=== PATIENT | female | born 1990 | race African-American/Black ===

== ENCOUNTER 2017-03-15 09:57 | Inpatient (IN) | payer OTHER ==
[~2017-03-15] VITALS: Ht 160 cm; Wt 94.8 kg
[2017-03-15] VITALS (11 sets, daily range): BP systolic 100–121; BP diastolic 45–75; PULSE 69–99; RESP 16–20; TEMP 97.7–98.3; O2SAT 96–100
[2017-03-15] MEDS ORDERED: LACTATED RINGER'S 1000 ML INJ 1,000 ML IV ONE (10:21)
--- NOTE | 2017-03-15 10:29 | HHI.HP ---
HPI Chief Complaint Repeat Date Seen: Mar 15, 2017 Travel History International Travel<30 Days: No Contact w/Intl Traveler<30Days: No History of Present Illness HPI Patient is a 26 year old at 39-3/7 weeks gestation who presents today for repeat . She denies any vaginal bleeding or discharge. No contractions or gush or leaking of fluid. Positive movement. No complications with . History Past Medical History Narrative Medical Sickle cell trait Medical History: Denies Significant Hx Obstetric History Obstetric History x 3 Past Surgical History Narrative Surgical x 3 Family History Family History: Negative Social History Alcohol Use: No Tobacco Use: No Substance Abuse: No Allergies-Medications (Allergen,Severity, Reaction): Coded Allergies: latex (Verified Allergy, Unknown, 03/15/17) Review of Systems Except as stated in HPI: all other systems reviewed are Neg General / Constitutional: No: Fever, Chills Eyes: No: Blurred Vision, Visual changes HENT: No: Headaches Cardiovascular: No: Chest Pain or Discomfort, Palpitations Respiratory: No: Cough, Short of Breath Gastrointestinal: No: Nausea, Vomiting, Abdominal Pain Genitourinary: No: Dysuria, Hematuria, Pelvic Pain, Discharge, Vaginal Bleeding Musculoskeletal: No: Edema Neurologic: No: Headache Psychiatric: No: Substance Abuse Physical Exam Narrative GENERAL: Well-nourished, well-developed patient. SKIN: Warm and dry. HEAD: Normocephalic and atraumatic. EYES: No scleral icterus. No injection or drainage. ENT: No nasal drainage noted. Mucous membranes pink. Airway patent. NECK: Supple, trachea midline. No JVD. CARDIOVASCULAR: Regular rate and rhythm without murmurs, gallops, or rubs. RESPIRATORY: Breath sounds equal bilaterally. No accessory muscle use. ABDOMEN/GI: Abdomen soft, non-tender, bowel sounds present, no rebound, no guarding Gravid to 39 weeks size GENITOURINARY: External Genitalia: intact and normal in appearance Presentation: vertex Membranes: intact Uterine Contractions: none FHT's: Category: I Baseline: 140 Reactive: + Variability: moderate Decels: none EXTREMITIES: No cyanosis or edema. BACK: Nontender without obvious deformity. No CVA tenderness. NEUROLOGICAL: Awake and alert. Motor and sensory grossly within normal limits. Normal speech. Caprini VTE Risk Assessment Caprini VTE Risk Assessment: No/Low Risk (score <= 1) Caprini Risk Assessment Model Point Value = 1 Point Value = 2 Point Value = 3 Point Value = 5 Age 41-60 Minor surgery BMI > 25 kg/m2 Swollen legs Varicose veins or History of unexplained or recurrent spontaneous Oral contraceptives or hormone replacement Sepsis (< 1 month) Serious lung disease, including pneumonia (< 1 month) Abnormal pulmonary function Acute myocardial infarction Congestive heart failure (< 1 month) History of inflammatory bowel disease Medical patient at bed rest Age 61-74 Arthroscopic surgery Major open surgery (> 45 min) Laparoscopic surgery (> 45 min) Malignancy Confined to bed (> 72 hours) Immobilizing plaster cast Central venous access Age >= 75 History of VTE Family history of VTE Factor V Leiden Prothrombin [id number] Lupus anticoagulant Anticardiolipin antibodies Elevated serum homocysteine Heparin-induced thrombocytopenia Other congenital or acquired thrombophilia Stroke (< 1 month) Elective arthroplasty Hip, pelvis, or leg fracture Acute spinal cord injury (< 1 month) Prophylaxis Regimen Total Risk Factor Score Risk Level Prophylaxis Regimen 0-1 Low Early ambulation 2 Moderate Order ONE of the following: *Sequential Compression Device (SCD) *Heparin 5000 units SQ BID 3-4 Higher Order ONE of the following medications: *Heparin 5000 units SQ TID *Enoxaparin/Lovenox 40 mg SQ daily (WT < 150 kg, CrCl > 30 mL/min) *Enoxaparin/Lovenox 30 mg SQ daily (WT < 150 kg, CrCl > 10-29 mL/min) *Enoxaparin/Lovenox 30 mg SQ BID (WT < 150 kg, CrCl > 30 mL/min) AND/OR *Sequential Compression Device (SCD) 5 or more Highest Order ONE of the following medications: *Heparin 5000 units SQ TID (Preferred with Epidurals) *Enoxaparin/Lovenox 40 mg SQ daily (WT < 150 kg, CrCl > 30 mL/min) *Enoxaparin/Lovenox 30 mg SQ daily (WT < 150 kg, CrCl > 10-29 mL/min) *Enoxaparin/Lovenox 30 mg SQ BID (WT < 150 kg, CrCl > 30 mL/min) AND *Sequential Compression Device (SCD) Data Data Vital Signs Reviewed: Yes Orders Orders Admit To Inpatient (03/15/17 ) Code Status (03/15/17 10:21) Vital Signs (Adult) .ON ADMISSION (03/15/17 10:21) Activity Oob Ad Monica (03/15/17 10:21) Heart (03/15/17 10:21) Urinary Catheter Management NETTA.Q8H (03/15/17 10:21) ^ Preps (03/15/17 10:21) Scd / Fito / Foot Pump NETTA.QSHIFT (03/15/17 10:21) ^ Ultrasound For Locatio (03/15/17 10:21) Diet Npo (03/15/17 Lunch) Lactated Ringer's 1000 Ml Inj (Lr 1000 M (03/15/17 10:21) Lactated Ringer's 1000 Ml Inj (Lr 1000 M (03/15/17 10:51) Cefazolin 2 Gm Premix (Ancef 2 Gm Premix (03/15/17 11:30) Citric Acid-Sodium Citrate Liq (Bicitra (03/15/17 12:00) Type And Screen (03/15/17 10:21) Complete Blood Count With Diff (03/15/17 10:21) Urinalysis - C+S If Indicated (03/15/17 10:21) Inpatient Certification (03/15/17 ) Specimen To Be Collected PRN (03/15/17 10:21) Group B Strep: Positive Assessment/Plan Problem List: (1) 39 weeks gestation of ICD Codes: Z3A.39 - 39 weeks gestation of Assessment and Plan 26 year old at 39-3/7 weeks gestation. 1. IUP- Category I tracing, reassuring. 2. Repeat without tubal ligation. 3. GBS positive. dw Fernanda Enriquez MD, R3 Mar 15, 2017 10:29
[2017-03-15 10:43] LABS: AUTOMATED NEUTROPHIL # 8.9 TH/MM3 (1.8-7.7); BASOPHIL % 0.3 % (0.0-2.0); EOSINOPHIL % 0.3 % (0.0-4.0); HEMATOCRIT 30.5 % (35.0-46.0); LYMPH % 15.9 % (9.0-44.0); LYMPHOCYTE # 1.8 TH/MM3 (1.0-4.8); MEAN CELL VOLUME 66.4 FL (80.0-100.0); MEAN CORPUSCULAR HEMOGLOBIN 21.5 PG (27.0-34.0); MEAN CORPUSCULAR HGB CONC 32.4 % (32.0-36.0); MONO % 5.3 % (0.0-8.0); NEUT % 78.2 % (16.0-70.0); PLATELET COUNT 152 TH/MM3 (150-450); RED BLOOD COUNT 4.59 MIL/MM3 (4.00-5.30); RED CELL DISTRIBUTION WIDTH 21.8 % (11.6-17.2); WHITE BLOOD COUNT 11.3 TH/MM3 (4.0-11.0)
[2017-03-15 10:44] LABS: HEMO FLAGS AUTO DIFF
[2017-03-15 10:48] LABS: BACTERIA, URINE MOD /hpf; BLOOD, URINE NEG (NEG); COMMENT (UR) CULTURE INDICATED; CULTURE IF INDICATED CULTURE INDICATED; GLUCOSE,URINE NEG (NEG); HYALINE CAST, URINE 2 /lpf (RARE); KETONE, URINE 10 mg/dL (NEG); MUCUS URINE FEW /lpf (OCC); NITRITE,URINE NEG (NEG); SQUAMOUS EPITHELIAL CELL URINE 31 /hpf (0-5); URINE COLOR YELLOW (YELLW/STRAW)
[2017-03-15] MEDS ORDERED: ACETAMINOPHEN 1000 MG/100 ML 100 ML IV ONE ×2 (11:26→13:30)
[2017-03-15] MEDS ORDERED: OXYTOCIN 10 UNIT/ML AMP ONE (11:26)
[2017-03-15] MEDS: LACTATED RINGER'S 1000 ML INJ 1,000 ML IV SCH (11:27)
[2017-03-15] MEDS ORDERED: ceFAZolin 2 GM PREMIX 50 ML IV SCH (11:30)
[2017-03-15 11:41] LABS: OVALOCYTES 1+ (NORMAL); SCAN/DIFF AUTO DIFF CONFIRMED; TEARDROP RBCS 1+ (NORMAL)
[2017-03-15 11:43] LABS: KERATOCYTES OCC (NORMAL)
[2017-03-15] MEDS ORDERED: CITRIC ACID-SODIUM CITRATE LIQ 30 ML UDC PO SCH (12:00)
[2017-03-15] MEDS ORDERED: MORPHINE SULFATE PF 5 MG/10 ML VIAL ONE (13:22)
[2017-03-15] MEDS ORDERED: ONDANSETRON HCL 4 MG/2 ML VIAL ONE (13:22)
[2017-03-15] MEDS ORDERED: OXYTOCIN 30 UNITS-500ML PREMIX 500 ML IV ONE ×2 (13:30)
[2017-03-15] MEDS ORDERED: SODIUM CHLORIDE 0.9% FLUSH 10 ML FLUSH IV FLUSH PRN (13:30)
[2017-03-15] MEDS ORDERED: oxyCODONE/ACETAMINOPHEN 5 MG/325 MG TAB PO PRN (13:30)
[2017-03-15] MEDS ORDERED: ONDANSETRON HCL 4 MG/2 ML VIAL IV PUSH PRN (13:30)
[2017-03-15] MEDS ORDERED: SIMETHICONE 80 MG CHEWABLE TAB PO PRN (13:30)
[2017-03-15] MEDS ORDERED: DOCUSATE SODIUM 50 MG/SENNA 8.6 MG TAB PO PRN (13:30)
[2017-03-15] MEDS ORDERED: *Lactated Ringer's INJ 1,000 ML IV ONE (13:46)
[2017-03-15] MEDS ORDERED: OXYTOCIN 30 UNITS-500ML PREMIX 500 ML ONE (14:03)
[2017-03-15] MEDS ORDERED: EPIDURAL-DO NOT ADMINISTER ANTICOAGULANTS PRN (15:00)
[2017-03-15] MEDS ORDERED: EPIDURAL-NALOXONE HCL 0.4 MG/ML AMP IV PUSH PRN (15:00)
[2017-03-15] MEDS ORDERED: EPIDURAL-DIPHENHYDRAMINE HCL 50 MG CAP PO PRN (15:00)
[2017-03-15] MEDS ORDERED: MORPHINE SULFATE PF 5 MG/10 ML VIAL IT ONE (15:00)
[2017-03-15] MEDS ORDERED: EPIDURAL-DIPHENHYDRAMINE HCL 50 MG/ML VIAL IV PUSH PRN (15:00)
[2017-03-15] MEDS ORDERED: EPIDURAL-NO SYSTEMIC NARCOTICS PRN (15:00)
[2017-03-15] MEDS ORDERED: LACTATED RINGER'S 1000 ML INJ 1,000 ML IV SCH (18:27)
[2017-03-15] MEDS ORDERED: SODIUM CHLORIDE 0.9% FLUSH 10 ML FLUSH IV FLUSH SCH (21:00)
[2017-03-15] MEDS ORDERED: OXYTOCIN 30 UNITS-500ML PREMIX 500 ML IV PRN (23:30)
[2017-03-16] VITALS (8 sets, daily range): BP systolic 98–120; BP diastolic 54–71; PULSE 72–93; RESP 14–16; TEMP 98.2–98.8
[2017-03-16] MEDS: oxyCODONE/ACETAMINOPHEN 5 MG/325 MG TAB PO PRN ×3 (02:57→23:02)
[2017-03-16] MEDS: IBUPROFEN 600 MG TAB PO PRN ×3 (02:57→23:02)
[2017-03-16 08:15] LABS: AUTOMATED NEUTROPHIL # 10.9 TH/MM3 (1.8-7.7); BASOPHIL % 0.3 % (0.0-2.0); EOSINOPHIL % 0.2 % (0.0-4.0); HEMATOCRIT 23.6 % (35.0-46.0); LYMPH % 11.7 % (9.0-44.0); LYMPHOCYTE # 1.6 TH/MM3 (1.0-4.8); MEAN CORPUSCULAR HEMOGLOBIN 21.7 PG (27.0-34.0); MEAN CORPUSCULAR HGB CONC 32.3 % (32.0-36.0); MONO % 6.2 % (0.0-8.0); NEUT % 81.6 % (16.0-70.0); PLATELET COUNT 125 TH/MM3 (150-450); RED BLOOD COUNT 3.51 MIL/MM3 (4.00-5.30); RED CELL DISTRIBUTION WIDTH 22.4 % (11.6-17.2); WHITE BLOOD COUNT 13.3 TH/MM3 (4.0-11.0)
[2017-03-16 08:29] LABS: HEMO FLAGS AUTO DIFF
--- NOTE | 2017-03-16 09:30 | HHI.OB ---
Subjective Post Operative Day: 1 Objective Vitals/I&O Vital Signs Date Time Temp Pulse Resp B/P (MAP) Pulse Ox O2 Delivery O2 Flow Rate FiO2 03/16/17 04:00 98.2 78 16 120/71 (87) 03/16/17 00:16 98.3 76 14 98/54 (69) 03/15/17 20:20 98.3 81 16 101/65 (77) 03/15/17 14:55 88 16 103/45 (64) 03/15/17 14:30 82 106/50 (68) 03/15/17 14:30 18 96 03/15/17 14:15 104/57 (73) 03/15/17 14:11 80 18 100 03/15/17 14:11 97.7 03/15/17 13:59 105/59 (74) 03/15/17 13:59 87 18 98 03/15/17 13:45 111/58 (75) 03/15/17 13:39 86 20 104/62 (76) 98 03/15/17 13:26 97.8 98 18 102/52 (69) 98 03/15/17 10:30 99 100/74 (83) 03/15/17 10:25 98 03/15/17 10:25 69 121/75 (90) Result Diagram: 03/16/17 0716 Objective Remarks GENERAL: Well-nourished, well-developed patient. CARDIOVASCULAR: Regular rate and rhythm without murmurs, gallops, or rubs. RESPIRATORY: Breath sounds equal bilaterally. No accessory muscle use. ABDOMEN/GI: Abdomen soft, non-tender, bowel sounds present. Incision: dressing, Clean, dry and intact. Fundus: Firm, non-tender at umbilicus. GENITOURINARY: Light to moderate bleeding. EXTREMITIES: No cyanosis or edema, non-tender, without signs of DVT. Medications and IVs Current Medications Medications (Trade) Dose Ordered Sig/Shaun Route Start Time Stop Time Status Last Admin Lactated Ringer's 1,000 ml @ 150 mls/hr Q6H40M IV 03/15/17 10:51 03/15/17 11:27 Cefazolin Sodium/ Dextrose 50 ml @ 100 mls/hr SHAREPOINT SOLUTIONS ARCHITECT IV 03/15/17 11:30 03/19/17 11:29 (Bicitra Liq) 30 ml SH[employer] ARCHITECT PO 03/15/17 12:00 03/19/17 11:59 Lactated Ringer's 1,000 ml @ 100 mls/hr Q10H IV 03/15/17 18:27 03/16/17 14:26 Oxytocin 500 ml @ 100 mls/hr UNSCH X1 PRN IV 03/15/17 23:30 03/16/17 23:29 (NS Flush) 2 ml BID IV FLUSH 03/15/17 21:00 (NS Flush) 2 ml UNSCH PRN IV FLUSH 03/15/17 13:30 (Mylicon Chew) 80 mg QID PRN PO 03/15/17 13:30 (Motrin) 600 mg Q6H PRN PO 03/15/17 13:30 03/16/17 02:57 (Percocet 5-325 Mg) 1 tab Q4H PRN PO 03/15/17 13:30 03/16/17 02:57 (Percocet 5-325 Mg) 2 tab Q4H PRN PO 03/15/17 13:30 (Kira-Colace) 2 tab Q12H PRN PO 03/15/17 13:30 (M-M-R Ii Inj) 0.5 ml ONCE ONCE SQ 03/16/17 16:00 03/16/17 16:01 (Boostrix Inj) 0.5 ml ONCE ONCE IM 03/16/17 16:00 03/16/17 16:01 (Zofran Inj) 4 mg Q6H PRN IV PUSH 03/15/17 13:30 03/15/17 18:27 Miscellaneous Information NO SYSTEMIC NARCOTICS TO BE GIVEN FO... UNSCH PRN .XX 03/15/17 15:00 03/16/17 14:59 (Narcan Inj) 0.4 mg UNSCH PRN IV PUSH 03/15/17 15:00 03/16/17 14:59 (Benadryl Inj) 25 mg Q6H PRN IV PUSH 03/15/17 15:00 03/16/17 14:59 (Benadryl) 50 mg Q6H PRN PO 03/15/17 15:00 03/16/17 14:59 03/15/17 20:38 Miscellaneous Information ALL NURSING DEPARTMENTS UNSCH PRN .XX 03/15/17 15:00 03/16/17 14:59 Assessment/Plan Problem List: (1) 39 weeks gestation of ICD Codes: Z3A.39 - 39 weeks gestation of Status: Resolved (2) S/P repeat low transverse ICD Codes: Z98.891 - History of uterine scar from previous surgery (3) Anemia ICD Codes: D64.9 - Anemia, unspecified Status: Chronic Assessment and Plan POD #1 repeat c section pt doing well, denies sob or cp with ambulation, does have slight dizziness when moving, advised to move slowly pain well managed with Duramorph at this point hgb 7.6, will order Venofer and repeat cbc in am pt to shower today routine care Discharge Planning consider dc in 2 days Jimena Oreilly Mar 16, 2017 09:30
[2017-03-16 09:32] LABS: KERATOCYTES OCC (NORMAL); OVALOCYTES 1+ (NORMAL); PLATELET ESTIMATE SMEAR LOW (NORMAL); PLATELET MORPHOLOGY ENLARGED (NORMAL); SCAN/DIFF AUTO DIFF CONFIRMED; TEARDROP RBCS 1+ (NORMAL)
--- NOTE | 2017-03-16 09:39 | HHI.DCPOC ---
Discharge Care Plan Diagnosis: (1) S/P repeat low transverse (2) Anemia Your Health Problems Are: delivery Report Symptoms to Your Doctor -Temperature above 100.5 degrees -Redness, of incision or excessive or foul smelling drainage -Unusual pain or calf pain -Increased vaginal bleeding -Painful or difficulty urinating -Feelings of extreme sadness or anxiety after 2 weeks Goals to Promote Your Health * To prevent worsening of your condition and complications * To maintain your health at the optimal level Directions to Meet Your Goals Take your medications as prescribed Follow your dietary instruction Follow activity as directed Ensure plenty of rest for recovery Drink fluids for hydration Keep your appointments as scheduled Take your immunizations and boosters as scheduled If your symptoms worsen call your PCP, if no PCP go to Urgent Care Center or Emergency Room Smoking is Dangerous to Your Health. Avoid second hand smoke Call the 24-hour crisis hotline for domestic abuse at Jimena Oreilly Mar 16, 2017 09:39
[2017-03-16] MEDS: IRON SUCROSE INJ 200 MG in SODIUM CHLORIDE 0.9% INJ 100 ML IV SCH (11:28)
--- NOTE | 2017-03-16 12:53 | HHI.DS ---
Admission Date Mar 15, 2017 at 09:57 Admitting Diagnosis TERM PREVIOUS C SECTION REPEAT C SECTION Diagnosis: (1) S/P repeat low transverse ICD Codes: Z98.891 - History of uterine scar from previous surgery (2) 39 weeks gestation of ICD Codes: Z3A.39 - 39 weeks gestation of Status: Resolved Delivery Date: Mar 15, 2017 : Repeat Reason: DESIRES REPEAT Infant: Male Brief History Patient is a 26 year old at 39-3/7 weeks gestation who presents today for repeat . She denies any vaginal bleeding or discharge. No contractions or gush or leaking of fluid. Positive movement. No complications with . Hospital Course PREVIOUS C SECTION TERM WITH REPEAT C SECTION CHRONIC ANEMIA TREATED WITH IV VENOFER ROUTINE CARE Pt Condition on Discharge: Good Discharge Disposition: Discharge Home Discharge Instructions Diet Instructions: As Tolerated, No Restrictions Activities You Can Perform: Regular-No Restrictions, Shower Only-No Bath Activities to Avoid: Strenuous Activity, Bathing, Driving, Sexual Activity Follow up Referrals: [facility] - 1 Week @ [facility] Jimena Oreilly Mar 16, 2017 12:53
[2017-03-16] MEDS ORDERED: IBUP-232 PO (15:48)
[2017-03-16] MEDS ORDERED: OXYC1TAB63 PO (15:48)
[2017-03-16] MEDS ORDERED: MEASLES, MUMPS, RUBELLA VACCINE 0.5 ML VIAL SQ ONE (16:00)
[2017-03-16] MEDS ORDERED: DIPHTH/TETANUS/ACEL PERTUSSIS (BOOSTER) 0.5 ML VIAL/PFS IM ONE (16:00)
[2017-03-17 05:35] VITALS: BP 118/80; PULSE 52; RESP 14; TEMP 98.3
[2017-03-17] MEDS: oxyCODONE/ACETAMINOPHEN 5 MG/325 MG TAB PO PRN ×2 (07:04→14:40)
[2017-03-17] MEDS: IBUPROFEN 600 MG TAB PO PRN ×3 (07:04→21:16)
[2017-03-17 09:00] VITALS: BP 118/67; PULSE 90; RESP 20; TEMP 99.2
[2017-03-17] MEDS: IRON SUCROSE INJ 200 MG in SODIUM CHLORIDE 0.9% INJ 100 ML IV SCH (09:00)
--- NOTE | 2017-03-17 09:14 | HHI.OB ---
Subjective Post Operative Day: 2 Remarks no complaints, repeat c/s x4 Objective Vitals/I&O Vital Signs Date Time Temp Pulse Resp B/P (MAP) Pulse Ox O2 Delivery O2 Flow Rate FiO2 03/17/17 05:35 98.3 52 14 118/80 (93) 03/16/17 21:40 114/65 (81) 03/16/17 21:40 98.3 93 16 03/16/17 20:00 98.3 93 16 114/65 (81) 03/16/17 16:00 98.3 03/16/17 16:00 84 16 109/68 (82) 03/16/17 12:00 111/69 (83) 03/16/17 12:00 98.8 84 14 03/16/17 11:00 16 Result Diagram: 03/16/17 0716 Objective Remarks GENERAL: Well-nourished, well-developed patient. CARDIOVASCULAR: Regular rate and rhythm without murmurs, gallops, or rubs. RESPIRATORY: Breath sounds equal bilaterally. No accessory muscle use. ABDOMEN/GI: Abdomen soft, non-tender, bowel sounds present. Incision: Clean, dry and intact. Fundus: Firm, non-tender at umbilicus. GENITOURINARY: Light to moderate bleeding. EXTREMITIES: No cyanosis or edema, non-tender, without signs of DVT. Medications and IVs Current Medications Medications (Trade) Dose Ordered Sig/Shaun Route Start Time Stop Time Status Last Admin Lactated Ringer's 1,000 ml @ 150 mls/hr Q6H40M IV 03/15/17 10:51 03/15/17 11:27 Cefazolin Sodium/ Dextrose 50 ml @ 100 mls/hr PLATING MACHINE OPERATOR IV 03/15/17 11:30 03/19/17 11:29 (Bicitra Liq) 30 ml PLATING MACHINE OPERATOR PO 03/15/17 12:00 03/19/17 11:59 (NS Flush) 2 ml BID IV FLUSH 03/15/17 21:00 (NS Flush) 2 ml UNSCH PRN IV FLUSH 03/15/17 13:30 (Mylicon Chew) 80 mg QID PRN PO 03/15/17 13:30 (Motrin) 600 mg Q6H PRN PO 03/15/17 13:30 03/17/17 07:04 (Percocet 5-325 Mg) 1 tab Q4H PRN PO 03/15/17 13:30 03/17/17 07:04 (Percocet 5-325 Mg) 2 tab Q4H PRN PO 03/15/17 13:30 (Kira-Colace) 2 tab Q12H PRN PO 03/15/17 13:30 (Zofran Inj) 4 mg Q6H PRN IV PUSH 03/15/17 13:30 03/15/17 18:27 Iron Sucrose 200 mg/Sodium Chloride 110 ml @ 110 mls/hr DAILY IV 03/16/17 11:00 03/18/17 09:59 03/16/17 11:28 Assessment/Plan Problem List: (1) 39 weeks gestation of ICD Codes: Z3A.39 - 39 weeks gestation of Status: Resolved (2) S/P repeat low transverse ICD Codes: Z98.891 - History of uterine scar from previous surgery (3) Anemia ICD Codes: D64.9 - Anemia, unspecified Status: Chronic Assessment and Plan POD #2 repeat c section pt doing well, denies sob or cp with ambulation, does have slight dizziness when moving, advised to move slowly pain well managed at this point hgb 7.6, will order Venofer and repeat cbc pt to shower today routine care Discharge Planning consider dc in 1 days Attending Attestation pt seen by Shannon Bryan MD Mar 17, 2017 09:14
[2017-03-17 10:58] LABS: AUTOMATED NEUTROPHIL # 10.2 TH/MM3 (1.8-7.7); BASOPHIL % 0.3 % (0.0-2.0); EOSINOPHIL # 0.2 TH/MM3 (0-0.4); EOSINOPHIL % 1.5 % (0.0-4.0); HEMATOCRIT 24.5 % (35.0-46.0); HEMO FLAGS AUTO DIFF; LYMPH % 12.6 % (9.0-44.0); LYMPHOCYTE # 1.6 TH/MM3 (1.0-4.8); MEAN CORPUSCULAR HEMOGLOBIN 21.1 PG (27.0-34.0); MEAN CORPUSCULAR HGB CONC 31.1 % (32.0-36.0); MONO % 5.5 % (0.0-8.0); NEUT % 80.1 % (16.0-70.0); PLATELET COUNT 158 TH/MM3 (150-450); RED BLOOD COUNT 3.61 MIL/MM3 (4.00-5.30); RED CELL DISTRIBUTION WIDTH 22.3 % (11.6-17.2); WHITE BLOOD COUNT 12.8 TH/MM3 (4.0-11.0)
[2017-03-17 11:43] LABS: SCAN/DIFF AUTO DIFF CONFIRMED
[2017-03-17 11:44] LABS: OVALOCYTES 1+ (NORMAL); TEARDROP RBCS 1+ (NORMAL)
--- NOTE | 2017-03-17 17:56 | MP ---
cc: López JIMENEZ MD DATE OF SURGERY March 15, 2017 PREOPERATIVE DIAGNOSIS 1. Previous section x3. 2. Intrauterine at 39 weeks. 3. Desires repeat section. POSTOPERATIVE DIAGNOSIS 1. Previous section x3. 2. Intrauterine at 39 weeks. 3. Desires repeat section. PROCEDURE Repeat low transverse section. ANESTHESIA Spinal. SURGEON López Jimenez MD CO-SURGEON Ivana Johnson MD FINDINGS Normal male infant, good Apgars. Normal uterus, normal tubes, normal ovaries. There was some adhesions around the uterus that were taken down. COMPLICATIONS None. COUNTS Correct. ESTIMATED BLOOD LOSS 600 cc. FLUIDS Crystalloids. DISPOSITION The patient tolerated the procedure well and went to recovery room in good condition. PROCEDURE IN DETAIL The patient was taken to the operating room identified by name band and verbally. She was given a spinal anesthetic. A Banks catheter was inserted. She was prepped and draped for section. The old Pfannenstiel incision was removed and excised completely and the incision was taken down to the fascia. The fascia was taken off the rectus muscle by blunt and sharp dissection. The peritoneum was entered under direct vision without complication. The incision was extended with care to avoid the urinary bladder. A bladder blade was placed and a bladder flap created over the lower uterine segment which was well-developed. The uterus was then scored in a transverse manner along the lower uterine segment and taken down in the midline until the uterine cavity was entered. The incision was extended with the surgeon's fingers. The vertex was grasped and delivered through the incision without difficulty. The hypopharynx and nasopharynx were suctioned. The remainder of the infant was delivered. The cord was doubly clamped and cut and the handed to the resuscitation team that was present. Cord blood was obtained. The placenta was delivered manually without difficulty. The uterus was curettaged twice with a wet lap. The uterine incision was repaired with 2-0 Vicryl a running locking fashion, the second layer imbricating the first. The cul-de-sac and gutters were cleaned of blood and debris with a large amount of irrigation. The uterus was delivered back into the abdomen. The incision was again inspected and was hemostatic. The rectus muscles were reapproximated with 0 Vicryl in an interrupted fashion. The fascia was repaired with 0 Vicryl from lateral to midline bilaterally in a running fashion. The subcutaneous tissue was repaired with 3-0 Vicryl. The skin was repaired with 4-0 Monocryl in a subcuticular manner. Steri-Strips were applied. The wound was sterilely dressed. She tolerated the procedure well and went to the recovery room in good condition. R. MD FRANCIS Page/PEGGY /1:27 PM /5:43 PM
[2017-03-17 20:10] VITALS: BP 120/74; PULSE 87; RESP 20; TEMP 98.8
[2017-03-17] MEDS: LACTATED RINGER'S 1000 ML INJ 1,000 ML IV SCH (22:51)
[2017-03-18] MEDS: LACTATED RINGER'S 1000 ML INJ 1,000 ML IV SCH (04:09)
[2017-03-18] MEDS: IRON SUCROSE INJ 200 MG in SODIUM CHLORIDE 0.9% INJ 100 ML IV SCH (07:06)
[2017-03-18 08:30] VITALS: BP 140/73; PULSE 77; RESP 16; TEMP 98.1
--- NOTE | 2017-03-18 10:02 | HHI.OB ---
Subjective Post Operative Day: 3 Remarks no c/o, Objective Vitals/I&O Vital Signs Date Time Temp Pulse Resp B/P (MAP) Pulse Ox O2 Delivery O2 Flow Rate FiO2 03/18/17 08:30 98.1 77 16 140/73 (95) 03/17/17 20:10 98.8 87 20 120/74 (89) Result Diagram: 03/17/17 0950 Objective Remarks GENERAL: Well-nourished, well-developed patient. CARDIOVASCULAR: Regular rate and rhythm without murmurs, gallops, or rubs. RESPIRATORY: Breath sounds equal bilaterally. No accessory muscle use. ABDOMEN/GI: Abdomen soft, non-tender, bowel sounds present. Incision: Clean, dry and intact. Fundus: Firm, non-tender at umbilicus. GENITOURINARY: Light to moderate bleeding. EXTREMITIES: No cyanosis or edema, non-tender, without signs of DVT. Medications and IVs Current Medications Medications (Trade) Dose Ordered Sig/Shaun Route Start Time Stop Time Status Last Admin Lactated Ringer's 1,000 ml @ 150 mls/hr Q6H40M IV 03/15/17 10:51 03/15/17 11:27 Cefazolin Sodium/ Dextrose 50 ml @ 100 mls/hr PLAYGROUND DIRECTOR IV 03/15/17 11:30 03/19/17 11:29 (Bicitra Liq) 30 ml PLAYGROUND DIRECTOR PO 03/15/17 12:00 03/19/17 11:59 (NS Flush) 2 ml BID IV FLUSH 03/15/17 21:00 (NS Flush) 2 ml UNSCH PRN IV FLUSH 03/15/17 13:30 (Mylicon Chew) 80 mg QID PRN PO 03/15/17 13:30 (Motrin) 600 mg Q6H PRN PO 03/15/17 13:30 03/17/17 21:16 (Percocet 5-325 Mg) 1 tab Q4H PRN PO 03/15/17 13:30 03/17/17 14:40 (Percocet 5-325 Mg) 2 tab Q4H PRN PO 03/15/17 13:30 03/17/17 21:16 (Kira-Colace) 2 tab Q12H PRN PO 03/15/17 13:30 03/17/17 14:40 (Zofran Inj) 4 mg Q6H PRN IV PUSH 03/15/17 13:30 03/15/17 18:27 Assessment/Plan Problem List: (1) 39 weeks gestation of ICD Codes: Z3A.39 - 39 weeks gestation of Status: Resolved (2) S/P repeat low transverse ICD Codes: Z98.891 - History of uterine scar from previous surgery (3) Anemia ICD Codes: D64.9 - Anemia, unspecified Status: Chronic Assessment and Plan POD #3 repeat c section routine care Discharge Planning routine Attending Attestation pt seen by Shannon Bryan MD Mar 18, 2017 10:02
[2017-03-18] MEDS ORDERED: SENN1TAB PO (10:04)
[2017-03-18] MEDS: IBUPROFEN 600 MG TAB PO PRN (12:47)
[2017-03-18] MEDS: oxyCODONE/ACETAMINOPHEN 5 MG/325 MG TAB PO PRN (12:47)
== END 2017-03-18 13:40 | disposition home or self-care (01) | DRG 766 ==
LOC: H2EB 09:57 → H1EA 14:44
PROVIDERS: ADMIT Obstetrics & Gynecology; ATTEND Obstetrics & Gynecology
PROC: 10D00Z1 Extraction of Products of Conception, Low, Open Approach (ICD-10-PCS; principal; 2017-03-15)
DX: O99.02 Anemia complicating childbirth (principal); D57.3 Sickle-cell trait; Z37.0 Single live birth; O34.211 Maternal care for low transverse scar from previous cesarean delivery; Z3A.39 39 weeks gestation of pregnancy; O99.824 Streptococcus B carrier state complicating childbirth; D64.9 Anemia, unspecified
CPT/HCPCS: 59025; 81001; 85025; 86850; 86900; 86901; 87086; 90715; J0131; J0690; J1756; J2274; J2405; J2590; J3010; J7120; Q0163